=== PATIENT | female | born 1965 | race Caucasian/White ===

== ENCOUNTER 2016-10-05 13:53 | Emergency (ER) | payer OTHER ==
[~2016-10-05] VITALS: Ht 157.5 cm; Wt 92.0 kg
[~2016-10-05 13:53] MED LIST: AZIT250T94 PO; GUAI118L94 PO
[2016-10-05 13:56] VITALS: Ht 157.5 cm; Wt 92.0 kg
[2016-10-05] MEDS ORDERED: IBUPROFEN 800 MG TAB PO ONE (14:30)
--- NOTE | 2016-10-05 14:36 | ERD ---
ER Documentation Chief Complaint Date/Time DATE: 10/05/16 TIME: 14:35 Chief Complaint heavy vaginal bleeding with pelvic pain x 4 days HPI 50-year-old female presents with a history of heavy vaginal bleeding associated with diffuse cramping pelvic pain for the past 4 days. Patient states that she has a history of possibly fibroids versus cysts, she has never had surgery from this. She complains of moderate cramping pain that is actually improving over the last 4 days. She has had heavy vaginal bleeding with clots and has been changing her pads approximately every hour. There is no history of fevers, chills, dizziness, chest pain or shortness of breath. ROS All systems reviewed and are negative except as per history of present illness. Medications Home Meds Active Scripts Ibuprofen* (Motrin*) 600 Mg Tab, 600 MG PO Q6, #30 TAB Prov:HALLE ELLIOTT PA-C 10/05/16 Ferrous Sulfate* (Ferrous Sulfate*) 325 Mg Tabec, 325 MG PO TID, #60 TAB Prov:HALLE ELLIOTT PA-C 10/05/16 Medroxyprogesterone Acetate* (Provera*) 10 Mg Tablet, 10 MG PO DAILY for 7 Days , TAB Prov:HALLE ELLIOTT PA-C 10/05/16 Guaifenesin-Codeine Phosphate* (Guaifenesin* with Codeine Liq) 120 Ml Liquid, 5 ML PO QHS for COUGH, #60 ML Prov:DANILO HENDERSON PA-C 05/03/15 Azithromycin* (Zithromax*) 250 Mg Tablet, 250 MG PO .ZPACK DIRECTED, #6 TAB TAKE 500 MG (2 TABS) THE FIRST DAY THEN 250 MG (1 TAB) DAYS 2-5 Prov:DANILO HENDERSON PA-C 05/03/15 Allergies Allergies: Coded Allergies: No Known Allergy (Unverified , 10/05/16) PMhx/Soc History of Surgery: Yes (tubal ligation) Anesthesia Reaction: No Hx Neurological Disorder: No Hx Respiratory Disorders: No Hx Cardiac Disorders: No Hx Psychiatric Problems: No Hx Miscellaneous Medical Probl: Yes (anemia) Hx Alcohol Use: No Hx Substance Use: No Hx Tobacco Use: No Physical Exam Vitals Vital Signs Date Time Temp Pulse Resp B/P Pulse Ox O2 Delivery O2 Flow Rate FiO2 10/05/16 13:56 98.8 84 16 123/66 98 Physical Exam General: Well-developed, well-nourished. The patient appears in no acute distress. HEENT: Head is normocephalic, atraumatic. No scleral icterus. Neck: Supple. Nontender. Lungs: Clear to auscultation. Normal air movement. Heart: Regular rate and rhythm. S1 and S2 are normal. No murmurs, gallops, or rubs. Abdomen: Soft, nontender, nondistended. Bowel sounds are normoactive. : os is closed, there is scant vaginal bleeding, no hemorrhage, no clots, no masses or tenderness. Extremities: No clubbing or cyanosis. Normal pulses. Moving extremities x 4. No weakness. Neurologic: Alert and oriented 3. No focal deficits. Skin: Normal turgor. No rash or lesions. Result Diagram: 10/05/16 1422 10/05/16 1422 Results 24 hrs Laboratory Tests Test 10/05/16 14:10 10/05/16 14:22 Urine Color DK. RED Urine Clarity BLOODY Urine pH 6.0 Urine Specific [place] >=1.030 Urine Ketones TRACE Urine Nitrite NEGATIVE Urine Bilirubin NEGATIVE Urine Urobilinogen 0.2 E.U./dL Urine Leukocyte Esterase NEGATIVE Urine Microscopic RBC >200/HPF Urine Microscopic WBC 5-10/HPF Urine Bacteria FEW/HPF Urine Hemoglobin 3+ Urine Glucose NEGATIVE% Urine Total Protein 4+ White Blood Count 7.310^3/ul Red Blood Count 4.0110^6/ul Hemoglobin 9.7g/dl Hematocrit 30.6% Mean Corpuscular Volume 76.3fl Mean Corpuscular Hemoglobin 24.2pg Mean Corpuscular Hemoglobin Concent 31.7g/dl Red Cell Distribution Width 17.2% Platelet Count 37356^3/UL Mean Platelet Volume 9.9fl Neutrophils % 50.3% Lymphocytes % 34.1% Monocytes % 10.3% Eosinophils % 4.0% Basophils % 0.8% Nucleated Red Blood Cells % 0.3/100WBC Neutrophils # 3.710^3/ul Lymphocytes # 2.510^3/ul Monocytes # 0.810^3/ul Eosinophils # 0.310^3/ul Basophils # 0.110^3/ul Nucleated Red Blood Cells # 0.010^3/ul Sodium Level 144mmol/L Potassium Level 3.7mmol/L Chloride Level 103mmol/L Carbon Dioxide Level 28mmol/L Anion Gap 17 Blood Urea Nitrogen 9mg/dl Creatinine 0.67mg/dl Glucose Level 94mg/dl Calcium Level 9.2mg/dl Current Medications Medications (Trade) Dose Ordered Sig/Lashonda Route PRN Reason Start Time Stop Time Status Last Admin Dose Admin Ibuprofen (Motrin) 800 mg ONCE ONCE PO 10/05/16 14:30 10/05/16 14:31 DC 10/05/16 14:37 DIAGNOSTIC IMAGING REPORT Patient: BESSY ALEXANDRA : 1965 Age: 50 Sex: F MR #: [id number] DOS: 10/05/16 1422 Ordering MD: HALLE ELLIOTT PA-C Location: [facility] Room/Bed: PROCEDURE: US Pelvis CLINICAL INDICATION: Heavy vaginal bleeding for 4 days TECHNIQUE: Sonographic evaluation of the pelvis was performed utilizing both transabdominal technique. Curved array transabdominal transducer technique was utilized. No transvaginal images were obtained, limiting evaluation. Images were reviewed on the high-resolution PACS workstation. COMPARISON: 11/17/2013 FINDINGS: The uterus is mildly prominent and measures about 11.2 x 6.8 x 9.4 cm. There are 2 intramural fibroids along the inferior fundus/body of the uterus measuring about 3.2 cm and 2.1 cm. The endometrium is thin and normal measuring 7 mm in diameter. Endometrium is limited in evaluation on transabdominal ultrasound. The right ovary measures 1.2 x 2.0 x 2.7 cm in dimension. The left ovary measures 2.6 x 2.0 x 2.1 cm in dimension. The ovaries are symmetric in size, echogenicity, and morphology. No masses are visualized within the ovaries. There is a dominant 1.1 cm follicle within the left ovary. There are no adnexal masses. There is no significant free fluid in the pelvis. No other incidental abnormality is identified. RPTAT: QQ IMPRESSION: 1. Two intramural fibroids within the inferior fundus/body of the uterus measuring up to 3.2 cm. 2. Unremarkable bilateral ovaries. .Lor Payne MD, Date Time Electronically viewed and signed by .Lor Payne MD, MD on 10/05/2016 15: 07 .T/ CC: HALLE ELLIOTT PA-C Procedures/MDM ED course: Labs and urine obtained. She was given ibuprofen 800 mg for pain. Medical decision making: This 50-year-old female presents with heavy vaginal bleeding is irregular, associated with pain for the past 4 days. Patient's pelvic examination shows benign amount of bleeding. There is no evidence of hemorrhage, and no abnormal masses seen on pelvic ultrasound. She reports that she has a history of anemia, and she is already taking iron for twice a day for the past 3 days ever since she has had bleeding. Her numbers in the past have been in the "8s", today her hemoglobin is 9.2 stable. Pelvic ultrasound that showed uterine fibroids up to 3.2 cm. She will be given Provera and ibuprofen for her symptoms. She is to recheck with [facility] and was given a list of facilities for follow-up. Departure Diagnosis: Primary Impression: Uterine fibroid Additional Impression: Vaginal bleeding Condition: HALLE Carrasco PA-C Oct 05, 2016 14:36
[2016-10-05 14:44] LABS: BASOPHIL # 0.1 10^3/ul (0.0-0.1); BASOPHILS % 0.8 % (0.0-2.0); EOSINOPHILS # 0.3 10^3/ul (0.0-0.5); HEMATOCRIT 30.6 % (37.0-47.0); HEMOGLOBIN 9.7 g/dl (12.0-16.0); LYMPHOCYTES # 2.5 10^3/ul (0.8-2.9); LYMPHOCYTES % 34.1 % (15.0-51.0); MEAN CORPUSCULAR HEMOGLOBIN 24.2 pg (29.0-33.0); MEAN CORPUSCULAR HGB CONC 31.7 g/dl (32.0-37.0); MEAN CORPUSCULAR VOLUME 76.3 fl (82.0-101.0); MEAN PLATELET VOLUME 9.9 fl (7.4-10.4); MONOCYTE # 0.8 10^3/ul (0.3-0.9); MONOCYTES % 10.3 % (0.0-11.0); NEUTROPHIL # 3.7 10^3/ul (1.6-7.5); NEUTROPHILS % 50.3 % (39.0-77.0); NUCLEATED RED BLOOD CELLS% 0.3 /100WBC (0.0-0.0); PLATELET COUNT 253 10^3/UL (140-415); RED BLOOD COUNT 4.01 10^6/ul (4.20-5.40); RED CELL DISTRIBUTION WIDTH 17.2 % (11.5-14.5); WHITE BLOOD COUNT 7.3 10^3/ul (4.8-10.8)
[2016-10-05 14:55] LABS: ADD UMIC YES; UR BILIRUBIN (Dip) NEGATIVE (NEGATIVE); UR BLOOD (Dip) 3+ (NEGATIVE); UR COLOR DK. RED (YELLOW); UR GLUCOSE (Dip) NEGATIVE (NEGATIVE); UR KETONES (Dip) TRACE (NEGATIVE); UR LEUKOCYTE ESTERASE (Dip) NEGATIVE (NEGATIVE); UR NITRITE (Dip) NEGATIVE (NEGATIVE); UR TOTAL PROTEIN (Dip) 4+ (NEGATIVE); UR UROBILINOGEN (Dip) 0.2 E.U./dL (0.1-1.0)
[2016-10-05 14:57] LABS: UR CLARITY BLOODY (CLEAR)
[2016-10-05 14:58] LABS: UR BACTERIA FEW /HPF (NONE SEEN); URINE RBCS >200 /HPF (0)
[2016-10-05 15:02] LABS: CALCIUM 9.2 mg/dl (8.4-10.2); CREATININE 0.67 mg/dl (0.44-1.00); POTASSIUM 3.7 mmol/L (3.5-5.1)
--- NOTE | 2016-10-05 15:07 | RADRPT ---
PROCEDURE: US Pelvis CLINICAL INDICATION: Heavy vaginal bleeding for 4 days TECHNIQUE: Sonographic evaluation of the pelvis was performed utilizing both transabdominal techni que. Curved array transabdominal transducer technique was utilized. No transvaginal images were obt ained, limiting evaluation. Images were reviewed on the high-resolution PACS workstation. COMPARISON: 11/17/2013 FINDINGS: The uterus is mildly prominent and measures about 11.2 x 6.8 x 9.4 cm. There are 2 intramural fibro ids along the inferior fundus/body of the uterus measuring about 3.2 cm and 2.1 cm. The endometrium is thin and normal measuring 7 mm in diameter. Endometrium is limited in evaluation on transabdomin al ultrasound. The right ovary measures 1.2 x 2.0 x 2.7 cm in dimension. The left ovary measures 2.6 x 2.0 x 2.1 c m in dimension. The ovaries are symmetric in size, echogenicity, and morphology. No masses are vis ualized within the ovaries. There is a dominant 1.1 cm follicle within the left ovary. There are n o adnexal masses. There is no significant free fluid in the pelvis. No other incidental abnormality is identified. RPTAT: QQ IMPRESSION: 1. Two intramural fibroids within the inferior fundus/body of the uterus measuring up to 3.2 cm. 2. Unremarkable bilateral ovaries. .Lor Payne MD, Date Time Electronically viewed and signed by .Lor Payne MD, MD on 10/05/2016 15:07 .T/
[2016-10-05] MEDS ORDERED: FER325 PO (15:45)
[2016-10-05] MEDS ORDERED: MEDR10TA2 PO (15:45)
[2016-10-05] MEDS ORDERED: IBUP-1542 PO (15:45)
== END 2016-10-05 15:51 | disposition home or self-care (01) ==
LOC: FTE 13:53
DX: D25.9 Leiomyoma of uterus, unspecified (principal); R10.2 Pelvic and perineal pain
CPT/HCPCS: 36415; 76856; 80048; 81001; 85025; Z7502; Z7610

== ENCOUNTER 2017-10-15 23:54 | Emergency (ER) | END 2017-10-16 05:52 | disposition home or self-care (01) ==

== ENCOUNTER 2018-03-27 16:53 | Emergency (ER) | payer OTHER ==
[~2018-03-27] VITALS: Wt 98.0 kg
[~2018-03-27 16:53] MED LIST changes: +AZIT250T PO; -AZIT250T94 PO; +FER325 PO; +IBUP-1542 PO; +IBUP800T48 PO; +MEDR10TA2 PO; +TRAM50TA2 PO
[2018-03-27 16:56] VITALS: BP 133/82; PULSE 79; RESP 18
[2018-03-27] MEDS ORDERED: IBUP-1542 PO (20:13)
[2018-03-27] MEDS ORDERED: CYCL10TA7 PO (20:13)
--- NOTE | 2018-03-27 20:19 | ERD ---
ER Documentation Chief Complaint Chief Complaint FINGERS TINGLING X 1 MOS HPI 52-year-old female presents with paresthesias in her bilateral hands for the last several months. She may have mild neck pain. She denies any history of injury., Vomiting, shortness of breath, weakness, additional symptoms. ROS All systems reviewed and are negative except as per history of present illness. Medications Home Meds Active Scripts Cyclobenzaprine Hcl* (Cyclobenzaprine Hcl*) 10 Mg Tablet, 10 MG PO TID, #15 TAB Prov:JACKIE RUEDA MD 03/27/18 Ibuprofen* (Motrin*) 600 Mg Tab, 600 MG PO Q6, #20 TAB Prov:JACKIE RUEDA MD 03/27/18 Ibuprofen* (Motrin*) 800 Mg Tab, 800 MG PO Q6H PRN for PAIN AND OR ELEVATED TEMP, #30 TAB Prov:ANTOINE PARDO 10/16/17 Tramadol HCl (Tramadol HCl) 50 Mg Tablet, 50 MG PO Q6 PRN for PAIN, #20 TAB Prov:ANTOINE PARDO 10/16/17 Ibuprofen* (Motrin*) 600 Mg Tab, 600 MG PO Q6, #30 TAB Prov:HALLE ELLIOTT PA-C 10/05/16 Ferrous Sulfate* (Ferrous Sulfate*) 325 Mg Tabec, 325 MG PO TID, #60 TAB Prov:HALLE ELLIOTT PA-C 10/05/16 Medroxyprogesterone Acetate* (Provera*) 10 Mg Tablet, 10 MG PO DAILY for 7 Days, TAB Prov:HALLE ELLIOTT PA-C 10/05/16 Guaifenesin-Codeine Phosphate* (Guaifenesin* with Codeine Liq) 120 Ml Liquid, 5 ML PO QHS for COUGH, #60 ML Prov:DANILO HENDERSON PA-C 05/03/15 Azithromycin* (Zithromax*) 250 Mg Tablet, 250 MG PO .HenriPACK DIRECTED, #6 TAB TAKE 500 MG (2 TABS) THE FIRST DAY THEN 250 MG (1 TAB) DAYS 2-5 Prov:DANILO HENDERSON PA-C 05/03/15 Allergies Allergies: Coded Allergies: No Known Allergy (Unverified , 10/05/16) PMhx/Soc Medical and Surgical Hx: pt denies Medical Hx, pt denies Surgical Hx History of Surgery: Yes (tubal ligation) Anesthesia Reaction: No Hx Neurological Disorder: No Hx Respiratory Disorders: No Hx Cardiac Disorders: No Hx Psychiatric Problems: No Hx Miscellaneous Medical Probl: Yes (anemia) Hx Alcohol Use: Yes Hx Substance Use: No Hx Tobacco Use: No Smoking Status: Never smoker FmHx Family History: No diabetes, No coronary disease, No other Physical Exam Vitals Vital Signs Date Temp Pulse Resp B/P (MAP) Pulse Ox O2 O2 Flow FiO2 Time Delivery Rate 03/27/18 98.1 79 18 133/82 99 16:56 (99) Physical Exam Const: No acute distress Head: Atraumatic Eyes: Normal Conjunctiva ENT: Normal External Ears, Nose and Mouth. Neck: Full range of motion. No meningismus. Possibly mild reproducible pain with passive range of motion of the neck. Resp: Clear to auscultation bilaterally Cardio: Regular rate and rhythm, no murmurs Abd: Soft, non tender, non distended. Normal bowel sounds Skin: No petechiae or rashes Back: No midline or flank tenderness Ext: No cyanosis, or edema. Neurovascular intact. Pulses 2+. No appreciable deficits or signs of ischemia. Neur: Awake and alert Psych: Normal Mood and Affect Result Diagram: 03/27/18190103/27/181901 Results 24 hrs Laboratory Tests Test 03/27/18 19:02 White Blood Count 5.1 10^3/ul Red Blood Count 4.77 10^6/ul Hemoglobin 14.1 g/dl Hematocrit 42.8 % Mean Corpuscular Volume 89.7 fl Mean Corpuscular Hemoglobin 29.6 pg Mean Corpuscular Hemoglobin Concent 32.9 g/dl Red Cell Distribution Width 13.9 % Platelet Count 177 10^3/UL Mean Platelet Volume 10.3 fl Immature Granulocytes % 0.200 % Neutrophils % 58.4 % Lymphocytes % 25.2 % Monocytes % 11.7 % Eosinophils % 3.9 % Basophils % 0.6 % Nucleated Red Blood Cells % 0.0 /100WBC Immature Granulocytes # 0.010 10^3/ul Neutrophils # 3.0 10^3/ul Lymphocytes # 1.3 10^3/ul Monocytes # 0.6 10^3/ul Eosinophils # 0.2 10^3/ul Basophils # 0.0 10^3/ul Nucleated Red Blood Cells # 0.0 10^3/ul Sodium Level 142 mmol/L Potassium Level 4.1 mmol/L Chloride Level 103 mmol/L Carbon Dioxide Level 27 mmol/L Anion Gap 12 Blood Urea Nitrogen 9 mg/dl Creatinine 0.57 mg/dl Est Glomerular Filtrat Rate mL/min > 60 mL/min Glucose Level 86 mg/dl Calcium Level 9.4 mg/dl Procedures/MDM X-ray C spine 3V Interpreted by me: Bones: No fracture Joints: No dislocation Foreign body: None impression-degenerative changes of the cervical spine. CBC and normal. Patient presents with paresthesias of bilateral hands. She may have cervical radicular symptoms. There is no signs or symptoms of ischemia, deficits, additional emergent causes of presenting complaints or cardiopulmonary etiology such as dissection or subclavian steal. She will be treated with ibuprofen, Flexeril, recommendations for primary care follow-up and return precautions. The patient was stable with no new complaints during the ER course. Clinically, there is no current evidence to suggest meningitis, sepsis, acute abdomen, pneumonia, stroke, acute coronary syndrome, pulmonary embolism, aortic dissection or any other emergent condition appearing to require further evaluation or hospitalization. Patient counseled regarding my diagnostic impression and care plan. Prior to discharge all questions answered. Pt agrees with treatment plan and understands strict return precautions. Pt is instructed to follow up with primary care provider within 24-48 hours. Precautionary instructions provided including instructions to return to the ER if not improving or for any worsening or changing symptoms or concerns. Departure Diagnosis: Primary Impression: Cervical radiculopathy Condition: Stable Patient Instructions: Radiculopathy, Cervical Additional Instructions: TIENE ARTRITIS EN LA NUCHA. OTRO EXAMINES NORMAL. Examines normal hoy. Cheque otro vez con urias doctor primario en el proximo hobson or regresa para mas o nueva simptomas. JACKIE RUEDA MD Mar 27, 2018 20:19
== END 2018-03-27 20:29 | disposition home or self-care (01) ==
LOC: FTE 16:53
DX: M54.12 Radiculopathy, cervical region (principal)
CPT/HCPCS: 72040; 80048; 85025; Z7502

== ENCOUNTER → 2018-05-17 | Outpatient (CLI) | payer OTHER ==
[~2018-05-17] MED LIST changes: +CYCL10TA7 PO
--- NOTE | 2018-05-17 18:25 | CONS ---
Assessment/Plan Assessment/Plan Hospital Course (Demo Recall) This a 52-year-old female with right worse than left knee pain. Examination and MRI are consistent with medial meniscus tear. She does not have overt mechanical symptoms. Therefore conservative management will be initiated. Her left knee pain is fairly mild and is likely secondary to compensating for the right knee pain. Plan: Obtain authorization for right knee steroid injection and physical therapy. Given patient's fatty liver she should discuss with her PCP any use of NSAIDs such as meloxicam Weight loss Ice Follow-up after authorization obtained for right knee steroid injection. Consultation Date/Type/Reason Admit Date/Time Date of Consultation: May 17, 2018 Reason for Consultation Bilateral knee pain Date/Time of Note DATE: 05/17/18 TIME: 18:17 Hx of Present Illness Is a 52-year-old female with a chief complaint of right and left knee pain. The pain is worse in the right knee. The pain began approximately 6 months ago. The patient's pain is in the medial and anterior aspect of the right and left knee. Denies any injury. Pain is not radiating to the lower leg. The pain is rated as a 7/10. Patient denies complaints of numbness or tingling. The pain is exacerbated by climbing stairs and ambulation. Pain is not relieved by NSAID's. ----- Duration: 6 months Injury: No Walking tolerance: Limited Limp: Yes Support: No Swelling: Yes, right knee Crepitation: Yes Instability: No Stairs: Difficult Physical Therapy: Yes Injections: No NSAID's: Yes Prior surgery: No Back pain: yes Hip pain: No Risk of AVN : No Patient denies fever, chills, shortness of breath, chest pain, nausea/vomiting, constipation, diarrhea, numbness, and tingling. Past Medical History psoriasis, possible Hepatic steatosis Home Meds Active Scripts Cyclobenzaprine Hcl* (Cyclobenzaprine Hcl*) 10 Mg Tablet, 10 MG PO TID, #15 TAB Prov:JACKIE RUEDA MD 03/27/18 Ibuprofen* (Motrin*) 600 Mg Tab, 600 MG PO Q6, #20 TAB Prov:JACKIE RUEDA MD 03/27/18 Ibuprofen* (Motrin*) 800 Mg Tab, 800 MG PO Q6H PRN for PAIN AND OR ELEVATED TEMP, #30 TAB Prov:ANTOINE PARDO 10/16/17 Tramadol HCl (Tramadol HCl) 50 Mg Tablet, 50 MG PO Q6 PRN for PAIN, #20 TAB Prov:ANTOINE PARDO 10/16/17 Ibuprofen* (Motrin*) 600 Mg Tab, 600 MG PO Q6, #30 TAB Prov:HALLE ELLIOTT PA-C 10/05/16 Ferrous Sulfate* (Ferrous Sulfate*) 325 Mg Tabec, 325 MG PO TID, #60 TAB Prov:HALLE ELLIOTT PA-C 10/05/16 Medroxyprogesterone Acetate* (Provera*) 10 Mg Tablet, 10 MG PO DAILY for 7 Days, TAB Prov:HALLE ELLIOTT PA-C 10/05/16 Guaifenesin-Codeine Phosphate* (Guaifenesin* with Codeine Liq) 120 Ml Liquid, 5 ML PO QHS for COUGH, #60 ML Prov:DANILO HENDERSON PA-C 05/03/15 Azithromycin* (Zithromax*) 250 Mg Tablet, 250 MG PO .ZPACK DIRECTED, #6 TAB TAKE 500 MG (2 TABS) THE FIRST DAY THEN 250 MG (1 TAB) DAYS 2-5 Prov:DANILO HENDERSON PA-C 05/03/15 Allergies: Coded Allergies: No Known Allergy (Unverified , 10/05/16) Past Surgical History Past Surgical Hx: noncontributory Family History Significant Family History: no pertinent family hx Social History Alcohol Use: sober Smoking Status: Never smoker Drug Use: none Exam/Review of Systems Exam Vitals Weight: 20 pounds Height: 5 feet 1 inches Heart Rate: 81 Blood Pressure: 119/72 Exam General: Awake, alert, in no acute distress, pleasant and cooperative Heart: regular rhythm Lungs: breathing comfortably, no tachypnea or dyspnea MUSCULOSKELETAL: Right and Left Knee This is a well developed obese female who is alert, oriented times three and in no apparent distress. Skin is intact over the right and left knee as well as the lower extremity with no abrasions, lacerations, or ulcerations. Observation of the patient's gait reveals an antalgic gait with no thrust. Frontal plane alignment is varus on the right and left knees. There is pain on palpation of posterior medial joint line on the right and mild anterior medial tenderness over the left femoral condyle. The patient demonstrates grinding anteriorly with ROM. Range of motion: 0 extension to approximately 130 degrees of flexion. Collateral ligament testing reveals no instability with varus or valgus stress at 0 and 30 degrees of flexion. Negative Amanda's and negative posterior drawer. Neurovascularly intact with 5/5 EHL/tibialis anterior/gastroc. Sensation intact to light touch in a sural, saphenous, deep peroneal, superficial peroneal, medial and lateral plantar nerve distribution. Palpable, symmetric dorsalis pedis and posterior tibial pulses in both lower extremities. Hip examination normal Imaging Imaging MRI from outside center reviewed. MRI of the right knee demonstrates a radial tear the central attachment/root of the posterior horn of the medial meniscus. Large joint effusion. Grade II chondromalacia the patella and medial compartment MRI of the left knee reviewed: Fraying throughout the medial meniscal free edge. No discrete tear. Mild mucoid degeneration of the ACL. Grade II chondromalac ia of the medial compartment. Small joint effusion. JERE KING MD May 17, 2018 18:25
--- NOTE | 2018-05-19 12:44 | RADRPT ---
PROCEDURE: XR knees CLINICAL INDICATION: Pain TECHNIQUE: Bilateral AP weight bearing views, PA Bruner views, bilateral sunrise views, and late ral views of the left and right knees COMPARISON: Radiographs of the right knee 10/16/2017 FINDINGS: Right knee: Small joint effusion. No acute fracture. Tricompartmental marginal osteophyte formation with mild to moderate medial tibio-femoral compartment cartilage space narrowing and subchondral scle rosis on AP weightbearing view. PA weightbearing view is slightly suboptimal. Left knee: No significant joint effusion. No acute fracture. Tricompartmental marginal osteophyte fo rmation with borderline mild lateral patellofemoral compartment cartilage space narrowing. Mild media l tibio-femoral compartment cartilage space narrowing on AP weightbearing view. PA weightbearing view is slightly suboptimal. Focal soft tissue calcification in the left leg may be vascular. IMPRESSION: Bilateral osteoarthritis, mild to moderate in the right medial tibio-femoral compartment and mild in the left medial tibio-femoral compartment as above. RPTAT: BBDD Physician Juliane Date Time Electronically viewed and signed by Physician Juliane on 05/19/2018 12:44 JESSICA/
== END | disposition home or self-care (01) ==
LOC: HKI 14:12
PROVIDERS: ATTEND Orthopaedic Surgery Adult Reconstructive Orthopaedic Surgery
DX: M23.221 Derangement of posterior horn of medial meniscus due to old tear or injury, right knee (principal); M23.8X2 Other internal derangements of left knee; E66.9 Obesity, unspecified
CPT/HCPCS: 73564; Z7500; G0463

== ENCOUNTER 2018-06-03 02:08 | Emergency (ER) | payer OTHER ==
[~2018-06-03] VITALS: Ht 154.9 cm; Wt 90.7 kg
[2018-06-03 02:12] VITALS: Ht 154.9 cm; Wt 90.7 kg
[2018-06-03] MEDS ORDERED: ONDANSETRON 4 MG INJ IV STA ×2 (04:01→07:26)
[2018-06-03] MEDS ORDERED: morphine 4 MG/ML VIAL IV STA (04:01)
[2018-06-03] MEDS ORDERED: FAMOTIDINE 20 MG INJ IV STA (04:01)
[2018-06-03] MEDS ORDERED: SOD CHLORIDE 0.9% 500 ML IV STA (04:01)
[2018-06-03] MEDS ORDERED: HYDROmorphONE 1 MG/ML SYG IV STA (07:26)
[2018-06-03] MEDS ORDERED: HYDR-3980 PO (07:32)
[2018-06-03] MEDS ORDERED: IBUP800T48 PO (07:32)
[2018-06-03] MEDS ORDERED: METH500T PO (07:32)
--- NOTE | 2018-06-03 07:35 | ERD ---
ER Documentation Chief Complaint Chief Complaint C/O LT UPPER AP RADIATING TO BACK X3 WEEKS HPI This is a 52-year-old female who is here for left mid thoracic pain that radiates into the upper lumbar region. The patient states she has had this for several weeks and she is going to physical therapy. She said yesterday physical therapy she felt like the overdid it and last night she had worsening of her symptoms of left lateral paraspinal pain located at the lower thoracic upper lumbar region. No hematuria no dysuria no abdominal pain. The pain is mild when she lays still however when she moves the pain is moderate. ROS All systems reviewed and are negative except as per history of present illness. Medications Home Meds Active Scripts Methocarbamol* (Robaxin*) 500 Mg Tab, 500 MG PO Q8, #20 TAB Prov:LJ SNYDER DO 06/03/18 Ibuprofen* (Motrin*) 800 Mg Tab, 800 MG PO Q6H PRN for PAIN AND OR ELEVATED TEMP, #30 TAB Prov:LJ SNYDER DO 06/03/18 Hydrocodone/Acetaminophen ([place] 10-325 Tablet) 1 Each Tablet, 1 TAB PO Q6H PRN for PAIN, #7 TAB Prov:LJ SNYDER DO 06/03/18 Discontinued Scripts Cyclobenzaprine Hcl* (Cyclobenzaprine Hcl*) 10 Mg Tablet, 10 MG PO TID, #15 TAB Prov:JACKIE RUEDA MD 03/27/18 Ibuprofen* (Motrin*) 600 Mg Tab, 600 MG PO Q6, #20 TAB Prov:JACKIE RUEDA MD 03/27/18 Ibuprofen* (Motrin*) 800 Mg Tab, 800 MG PO Q6H PRN for PAIN AND OR ELEVATED TEMP, #30 TAB Prov:ANTOINE PARDO F 10/16/17 Tramadol HCl (Tramadol HCl) 50 Mg Tablet, 50 MG PO Q6 PRN for PAIN, #20 TAB Prov:ANTOINE PARDO F 10/16/17 Ibuprofen* (Motrin*) 600 Mg Tab, 600 MG PO Q6, #30 TAB Prov:HALLE ELLIOTT PA-C 10/05/16 Ferrous Sulfate* (Ferrous Sulfate*) 325 Mg Tabec, 325 MG PO TID, #60 TAB Prov:HALLE ELLIOTT PA-C 10/05/16 Medroxyprogesterone Acetate* (Provera*) 10 Mg Tablet, 10 MG PO DAILY for 7 Days, TAB Prov:HALLE ELLIOTT PA-C 10/05/16 Guaifenesin-Codeine Phosphate* (Guaifenesin* with Codeine Liq) 120 Ml Liquid, 5 ML PO QHS for COUGH, #60 ML Prov:DANILO HENDERSON PA-C 05/03/15 Azithromycin* (Zithromax*) 250 Mg Tablet, 250 MG PO .ZPACK DIRECTED, #6 TAB TAKE 500 MG (2 TABS) THE FIRST DAY THEN 250 MG (1 TAB) DAYS 2-5 Prov:DANILO HENDERSON PA-C 05/03/15 Allergies Allergies: Coded Allergies: No Known Allergy (Unverified , 06/03/18) PMhx/Soc History of Surgery: Yes (tubal ligation) Anesthesia Reaction: No Hx Neurological Disorder: No Hx Respiratory Disorders: No Hx Cardiac Disorders: No Hx Psychiatric Problems: No Hx Miscellaneous Medical Probl: Yes (anemia) Hx Alcohol Use: Yes Hx Substance Use: No Hx Tobacco Use: No Smoking Status: Never smoker FmHx Family History: No coronary disease Physical Exam Vitals Vital Signs Date Temp Pulse Resp B/P (MAP) Pulse Ox O2 O2 Flow FiO2 Time Delivery Rate 06/03/18 57 16 90/52 (65) 100 Room Air 06:17 06/03/18 97.8 71 19 125/75 99 02:12 (92) Physical Exam Const: Well-developed, well-nourished Head: Atraumatic, normocephalic Eyes: Normal Conjunctiva, PERRLA, EOMI, normal sclera, no nystagmus ENT: Normal External Ears, Nose and Mouth, moist mucus membranes. Neck: Full range of motion. No meningismus, no lymphadenopathy. Resp: Clear to auscultation bilaterally, no wheezing, rhonchi, rales Cardio: Regular rate and rhythm, no murmurs, S1 S2 present Abd: Soft, non tender x 4, non distended. Normal bowel sounds, no guarding or rebound, no pulsitile abdominal masses or bruits Skin: No petechiae or rashes, no ecchymosis , no maculopapular rash Back: [Very tender left lower thoracic paraspinal musculature Ext: No cyanosis, or edema, FROM x 4, normal inspection, neurovascularly intact x 4 Neur: Awake and alert, STR 5/5 x 4, sensation intact x 4, no focal findings, cerebellum intact Psych: Normal Mood and Affect Result Diagram: 06/03/189 06/03/189 Results 24 hrs Laboratory Tests Test 06/03/18 04:29 White Blood Count 7.2 10^3/ul Red Blood Count 4.92 10^6/ul Hemoglobin 14.1 g/dl Hematocrit 43.4 % Mean Corpuscular Volume 88.2 fl Mean Corpuscular Hemoglobin 28.7 pg Mean Corpuscular Hemoglobin Concent 32.5 g/dl Red Cell Distribution Width 12.7 % Platelet Count 255 10^3/UL Mean Platelet Volume 10.4 fl Immature Granulocytes % 0.300 % Neutrophils % 60.3 % Lymphocytes % 24.1 % Monocytes % 10.7 % Eosinophils % 3.9 % Basophils % 0.7 % Nucleated Red Blood Cells % 0.0 /100WBC Immature Granulocytes # 0.020 10^3/ul Neutrophils # 4.3 10^3/ul Lymphocytes # 1.7 10^3/ul Monocytes # 0.8 10^3/ul Eosinophils # 0.3 10^3/ul Basophils # 0.1 10^3/ul Nucleated Red Blood Cells # 0.0 10^3/ul Urine Color YELLOW Urine Clarity SLIGHTLY CLOUDY Urine pH 6.0 Urine Specific [place] 1.014 Urine Ketones NEGATIVE mg/dL Urine Nitrite NEGATIVE mg/dL Urine Bilirubin NEGATIVE mg/dL Urine Urobilinogen NEGATIVE mg/dL Urine Leukocyte Esterase TRACE Epifanio/ul Urine Microscopic RBC 1 /HPF Urine Microscopic WBC 6 /HPF Urine Squamous Epithelial Cells FEW /HPF Urine Hemoglobin NEGATIVE mg/dL Urine Glucose NEGATIVE mg/dL Urine Total Protein NEGATIVE mg/dl Sodium Level 144 mmol/L Potassium Level 3.8 mmol/L Chloride Level 107 mmol/L Carbon Dioxide Level 25 mmol/L Anion Gap 12 Blood Urea Nitrogen 11 mg/dl Creatinine 0.56 mg/dl Est Glomerular Filtrat Rate mL/min > 60 mL/min Glucose Level 108 mg/dl Calcium Level 10.1 mg/dl Total Bilirubin 0.8 mg/dl Direct Bilirubin 0.00 mg/dl Indirect Bilirubin 0.8 mg/dl Aspartate Amino Transf (AST/SGOT) 44 IU/L Alanine Aminotransferase (ALT/SGPT) 77 IU/L Alkaline Phosphatase 137 IU/L Troponin I < 0.012 ng/ml Total Protein 9.0 g/dl Albumin 4.9 g/dl Globulin 4.10 g/dl Albumin/Globulin Ratio 1.19 Lipase 130 U/L Current Medications Medications Dose Sig/Lashonda Start Time Status Last (Trade) Ordered Route PRN Stop Time Admin Dose Reason Admin Sodium 500 ml @ Q1H STAT 06/03/18 DC 06/03/18 Chloride 500 mls/hr IV 04:01 04:19 06/03/18 05:00 Morphine 4 mg ONCE STAT 06/03/18 DC 06/03/18 Sulfate IV 04:01 04:19 (morphine) 06/03/18 04:02 Ondansetron 4 mg ONCE STAT 06/03/18 DC 06/03/18 HCl (Zofran IV 04:01 04:19 Inj) 06/03/18 04:02 Famotidine 20 mg ONCE STAT 06/03/18 DC 06/03/18 (Pepcid Iv) IV 04:01 04:19 06/03/18 04:02 1 mg ONCE STAT 06/03/18 DC Hydromorphone IV 07:26 HCl 06/03/18 07:27 (Dilaudid) Ondansetron 4 mg ONCE STAT 06/03/18 DC HCl (Zofran IV 07:26 Inj) 06/03/18 07:27 Procedures/MDM Ordering MD: MITCHELL LOPEZ MD Location: E/R Room/Bed: PROCEDURE: CT Abdomen and pelvis without contrast. CLINICAL INDICATION: Left flank pain TECHNIQUE: CT scan of the abdomen and pelvis without contrast was performed on a multidetector high-resolution CT scan. . Coronal and sagittal reformatted images were obtained from the axial source images. Standard CT scan of the abdomen pelvis without contrast protocols were performed. The total exam CTDI equals 20.2 mGy and the total exam DLP equals 1195.48 mGy- cm. One or more of the following dose reduction techniques were used: - Automated exposure control. - Adjustment of the mA and/or kV according to patient size. Use of iterative reconstruction technique. Dicom images are available COMPARISON: Abdominal ultrasound 01/17/2018 and pelvic ultrasound 05/25/2017 FINDINGS: The kidneys are normal in size without intra renal masses or hydronephrosis bilaterally. There are multiple tiny 1-2 mm non-obstructing right renal calcified calculi. No evidence of left renal calcified calculi. No evidence ureteral calcified calculi or dilatation. Partially contracted otherwise unremarkable urinary bladder. Anteverted anteflexed uterus otherwise unremarkable. Small low density in the ri ght adnexa likely a right ovarian cyst. Follow-up pelvic ultrasound is suggested. No other adnexal masses. Diverticular changes of the distal transverse, descending and sigmoid colon but no CT evidence of diverticulitis. Remainder the colon is unremarkable. Stomach, small bowel and appendix are unremarkable. No evidence of intra-abdominal free air, free fluid, abscesses or lymphadenopathy. Mild hepatomegaly with diffuse hepatic fatty infiltration. No focal hepatic lesions. Spleen pancreas adrenal glands and gallbladder unremarkable. No evidence biliary ductal dilation. Mild bibasilar chronic parenchymal lung disease and cylindrical bronchiectasis. Bibasilar subsegmental atelectasis. Aorta unremarkable. Abdominal pelvic wall unremarkable. Degenerative changes lower thoracic and lumbar spine without acute osseous findings are osteoblastic/osteolytic lesions. IMPRESSION: 1. Multiple tiny 1-2 mm non-obstructing right renal calcified calculi. No other urinary calcified calculi. No obstructive uropathy bilaterally. 2. Colonic diverticulosis as above without CT evidence diverticulitis. Unremarkable appendix. 3. Mild hepatomegaly with diffuse hepatic fatty infiltration. RPTAT:AAJJ Physician Edilia Date Time Electronically viewed and signed by Physician Edilia on 06/03/2018 05:39 BM/ CC: MITCHELL LOPEZ [id number] Ordering MD: MITCHELL LOPEZ MD Location: E/R Room/Bed: PROCEDURE: Single view chest. CLINICAL INDICATION: Abdominal pain TECHNIQUE: Single view of the chest was obtained COMPARISON: CR CHEST 05/03/2015 FINDINGS: There is no airspace consolidation or focal infiltrate. No pleural effusion or pneumothorax. Cardiac silhouette and mediastinal contours are unremarkable. Pulmonary vasculature appears normal. Regional bones are grossly unremarkable. IMPRESSION: No evidence of active cardiopulmonary disease. RPTAT: HJBB Physician Geri Date Time Electronically viewed and signed by Physician Geri on 06/03/2018 05:31 xB/ CC: MITCHELL LOPEZ [id number] The patient was given pain medication here. The patient has exacerbated her chronic thoracic paraspinal musculature. Will treat with Motrin, Robaxin and [place]. No evidence of any acute pathology on CT or chest x-ray Patient feels much better at this time, and vital signs are normal, symptoms have improved. I did give strict instructions to return to the ED if symptoms continue or worsen, patient will otherwise follow-up with primary care physician. Patient understood instructions and agreed to plan. Disclaimer: Inadvertent spelling and grammatical errors are likely due to EHR/dictation software use and do not reflect on the overall quality of patient care. Also, please note that the electronic time recorded on this note does not necessarily reflect the actual time of the patient encounter. Departure Diagnosis: Primary Impression: Back pain Back pain location: thoracic back pain Chronicity: acute Back pain laterality: left Qualified Codes: M54.6 - Pain in thoracic spine Additional Impression: Muscle spasm Condition: Stable Patient Instructions: Muscle Spasm, Back Pain (Acute Or Chronic) Referrals: [facility] (PCP) LJ SNYDER DO Jun 03, 2018 07:35
[2018-06-03] MEDS ORDERED: CIPR500T4 PO (07:36)
[2018-06-03 08:45] VITALS: BP 100/66; PULSE 85; RESP 15
== END 2018-06-03 09:00 | disposition home or self-care (01) ==
LOC: E/R 02:08
DX: M54.6 Pain in thoracic spine (principal); M62.830 Muscle spasm of back
CPT/HCPCS: 36415; 71045; 74176; 80053; 81001; 83690; 84484; 85025; 93005; 96374; 96375; 96376; J1170; J2270; J2405; J7040; Z7502; Z7610

== ENCOUNTER → 2018-06-11 | Outpatient (CLI) | payer OTHER ==
[~2018-06-11] MED LIST changes: -AZIT250T PO; +CIPR500T4 PO; -CYCL10TA7 PO; -FER325 PO; -GUAI118L94 PO; +HYDR-3980 PO; -IBUP-1542 PO; -MEDR10TA2 PO; +METH500T PO; -TRAM50TA2 PO
--- NOTE | 2018-06-11 17:24 | CONS ---
Consult Date/Type/Reason Admit Date/Time Initial Consult Date Date/Time of Note DATE: 06/11/18 TIME: 17:22 Subjective 52-year-old female presented clinic today for her right knee steroid injection for medial meniscus tear. States symptoms are unchanged. Denies any fevers or chills. Objective Vitals Weight: 20 pounds Height: 5 foot 1 inch Temperature: 98.6 Heart Rate: 89 Blood Pressure: 108/71 Respiratory Rate: 12 Exam General: Awake, alert, in no acute distress, pleasant and cooperative Heart: regular rhythm Lungs: breathing comfortably, no tachypnea or dyspnea MUSCULOSKELETAL: Right lower extremity: Skin intact. No erythema. Sensation intact to light touch in a sural, saphenous, deep peroneal, superficial peroneal, medial and lateral plantar nerve distribution. Motor is intact, patient able to dorsiflex and plantarflex ankle and extend and flex great toe. Dorsalis Pedis pulse +2, Brisk capillary refill. Compartments are soft. Calves non-tender to palpation bilaterally. Results/Medications Home Meds Active Scripts Ciprofloxacin Hcl* (Ciprofloxacin Hcl*) 500 Mg Tablet, 500 MG PO BID for 5 Days, TAB Prov:FEDERICA SNYDERSTOLOS A. DO 06/03/18 Methocarbamol* (Robaxin*) 500 Mg Tab, 500 MG PO Q8, #20 TAB Prov:OHOSFEDERICASTOLOS A. DO 06/03/18 Ibuprofen* (Motrin*) 800 Mg Tab, 800 MG PO Q6H PRN for PAIN AND OR ELEVATED TEMP, #30 TAB Prov:FEDERICA SNYDERSTSUSANS A. DO 06/03/18 Hydrocodone/Acetaminophen ([place] 10-325 Tablet) 1 Each Tablet, 1 TAB PO Q6H PRN for PAIN, #7 TAB Prov:FEDERICA SNYDERSTSUSANS A. DO 06/03/18 Assessment/Plan Hospital Course (Demo Recall) 52-year-old female with right medial meniscus tear. Starting conservative treatment today. She will undergo right knee steroid injection. She is starting physical therapy. Follow-up 3 months Assessment/Plan (Daily) Right knee steroid injection procedure: Risks and benefits of steroid injection reviewed with patient. The risks include infection, failure, pain, swelling, nerve/tendon/ligament damage. The patient verbalized understanding and verbal consent was obtained prior to procedure. The right knee was prepped in a sterile fashion with alcohol and betadine the site of injection was confirmed. Lateral approach was used. The skin and capsule was anesthetized with 3mL 1% lidocaine. The right knee was injected with 2mL 1% lidocaine, 2mL 0.25% bupivacaine, 40mg Depo-Medrol. Injection flowed freely. Good hemostasis was achieved and no complications noted. The patient tolerated the procedure well. Limit activity and ice for 24-48 hours JERE KING MD Jun 11, 2018 17:24
== END | disposition home or self-care (01) ==
LOC: HKI 15:14
PROVIDERS: ATTEND Orthopaedic Surgery Adult Reconstructive Orthopaedic Surgery
DX: M23.203 Derangement of unspecified medial meniscus due to old tear or injury, right knee (principal)
CPT/HCPCS: 20610; Z7500; Z7610; G0463